=== PATIENT | male | born 1980 | race Caucasian/White ===

== ENCOUNTER 2019-11-10 05:56 | Day surgery (SDC) | payer OTHER ==
[~2019-11-10] VITALS: Ht 167.6 cm; Wt 78.4 kg
[~2019-11-10 05:56] MED LIST: Amoxicillin500 MG PO; Bactrim Ds Tab1 EACH PO; CEPH500 PO; Cleocin HCl150 MG PO; HYDACE5 PO; HYDMOR2 PO; KETO10 PO; Keflex500 MG PO; META800 PO; OXYACE5T PO; PENVK250 PO; PROM25 PO; Percocet 5-3251 EACH PO; RXCLIN PO; RXOXYACE PO; RXSULTRIDS PO; SULTRIDS PO; Ultram50 MG PO
--- NOTE | 2019-11-10 06:39 | NUR ---
PT ADMITTED TO [facility]. AGREES WITH PLANNED SURGERY. LUNG SOUNDS CLEAR.
--- NOTE | 2019-11-10 09:49 | NUR ---
Patient up to Ambulate independently. Gait steady. Discharge instructions reviewed with patient. Patient verbalizes understanding. Copy given to patient to take home. Discharged via wheelchair to private car for ride home.
== END 2019-11-10 22:44 | disposition home or self-care (01) ==
LOC: ORSCMMR 05:56 → ORD 08:45 → ORSCMMR 08:45
PROVIDERS: Surgery
PROC: 0YU50JZ Supplement Right Inguinal Region with Synthetic Substitute, Open Approach (ICD-10-PCS; principal; 2019-11-10 07:30)
DX: K40.90 Unilateral inguinal hernia, without obstruction or gangrene, not specified as recurrent (principal); F17.210 Nicotine dependence, cigarettes, uncomplicated
CPT/HCPCS: C1781; J0690; J1100; J1885; J2250; J2405; J2704; J3010; J7120

== ENCOUNTER → 2020-11-26 | Outpatient (CLI) | payer OTHER | END | disposition home or self-care (01) | LOC: LAB SHORT 11:09 → LAB 11:09 | DX: L02.01 Cutaneous abscess of face (principal) | CPT/HCPCS: 87070; 87075; 87077; 87147; 87186; 87205 ==

== ENCOUNTER 2020-12-18 19:56 | Emergency (ER) | payer OTHER | END 2020-12-18 21:21 | disposition left against medical advice (07) | LOC: ER 19:56 | DX: Z53.21 Procedure and treatment not carried out due to patient leaving prior to being seen by health care provider (principal) ==

== ENCOUNTER 2022-01-08 02:19 | Emergency (ER) | payer OTHER ==
[~2022-01-08] VITALS: Ht 167.6 cm; Wt 79.4 kg
[~2022-01-08 02:19] MED LIST changes: +IBUP200 PO
[2022-01-08] MEDS ORDERED: AMOCLA875 PO (04:14)
== END 2022-01-08 04:23 | disposition home or self-care (01) ==
LOC: ER 02:19
DX: L03.211 Cellulitis of face (principal); K04.7 Periapical abscess without sinus; F17.210 Nicotine dependence, cigarettes, uncomplicated
CPT/HCPCS: A9270

== ENCOUNTER 2022-02-13 10:15 | Emergency (ER) | payer OTHER ==
[~2022-02-13] VITALS: Ht 167.6 cm; Wt 79.4 kg
[~2022-02-13 10:15] MED LIST changes: +AMOCLA875 PO
[2022-02-13] MEDS ORDERED: CEPH500 PO (12:05)
[2022-02-13] MEDS ORDERED: OXYC5 PO (12:05)
== END 2022-02-13 12:20 | disposition home or self-care (01) ==
LOC: ER 10:15
DX: S62.631B Displaced fracture of distal phalanx of left index finger, initial encounter for open fracture (principal); W27.0XXA Contact with workbench tool, initial encounter; F17.210 Nicotine dependence, cigarettes, uncomplicated; Z23 Encounter for immunization
CPT/HCPCS: 73140; 90714; J0690

== ENCOUNTER 2022-10-26 07:52 | Emergency (ER) | payer OTHER ==
[~2022-10-26] VITALS: Ht 170.2 cm; Wt 74.8 kg
[~2022-10-26 07:52] MED LIST changes: +OXYC5 PO
[2022-10-26 08:14] VITALS: BP 162/99
[2022-10-26] MEDS ORDERED: TRAM50 PO (08:46)
[2022-10-26] MEDS ORDERED: AMOX500 PO (08:46)
[2022-10-27] MEDS ORDERED: ONDA4 PO (19:26)
== END 2022-10-26 09:07 | disposition home or self-care (01) ==
LOC: ER 07:52
DX: K02.9 Dental caries, unspecified (principal); F17.210 Nicotine dependence, cigarettes, uncomplicated
CPT/HCPCS: 99282

== ENCOUNTER 2022-10-27 17:07 | Emergency (ER) | payer OTHER ==
[~2022-10-27] VITALS: Ht 170.2 cm; Wt 74.8 kg
[~2022-10-27 17:07] MED LIST changes: +AMOX500 PO; +TRAM50 PO
[2022-10-27 17:44] VITALS: BP 173/110
[2022-10-27] MEDS ORDERED: ONDA4 PO (19:26)
== END 2022-10-27 19:30 | disposition home or self-care (01) ==
LOC: ER 17:07
DX: K08.89 Other specified disorders of teeth and supporting structures (principal); Z79.899 Other long term (current) drug therapy; F17.210 Nicotine dependence, cigarettes, uncomplicated
CPT/HCPCS: 96372; 99282-25; A9270; J1885

== ENCOUNTER 2023-02-01 17:06 | Emergency (ER) | payer OTHER ==
[~2023-02-01] VITALS: Ht 167.6 cm; Wt 77.1 kg
[~2023-02-01 17:06] MED LIST changes: +ONDA4 PO
[2023-02-01 17:14] VITALS: BP 148/98
== END 2023-02-01 19:05 | disposition home or self-care (01) ==
LOC: ER 17:06
DX: M71.9 Bursopathy, unspecified (principal); F17.210 Nicotine dependence, cigarettes, uncomplicated
CPT/HCPCS: 99283

== ENCOUNTER 2023-09-30 09:41 | Emergency (ER) | payer OTHER ==
[~2023-09-30] VITALS: Ht 167.6 cm; Wt 79.4 kg
[~2023-09-30 09:41] MED LIST changes: +AMOX875 PO
[2023-09-30 09:47] VITALS: BP 151/96
[2023-09-30] MEDS ORDERED: SULTRIDS PO (10:05)
[2023-09-30] MEDS ORDERED: CEPHALEXIN500 MG PO (10:05)
== END 2023-09-30 10:17 | disposition home or self-care (01) ==
LOC: ER 09:41
DX: L03.012 Cellulitis of left finger (principal); F17.210 Nicotine dependence, cigarettes, uncomplicated
CPT/HCPCS: 99283

== ENCOUNTER 2023-12-12 21:31 | Emergency (ER) | payer OTHER ==
[~2023-12-12] VITALS: Ht 182.9 cm; Wt 81.7 kg
[~2023-12-12 21:31] MED LIST changes: +CEPHALEXIN500 MG PO
[2023-12-12 21:43] VITALS: BP 163/108
[2023-12-12] MEDS ORDERED: Amoxicillin/Clavulanate K 875 MG Tab PO ONE (21:50)
[2023-12-12] MEDS ORDERED: AMOCLA875 PO (21:52)
[2023-12-12] MEDS ORDERED: HYDROcodone 5-APAP 325 TAB PO ONE (22:10)
== END 2023-12-12 22:19 | disposition home or self-care (01) ==
LOC: ER 21:31
DX: K04.7 Periapical abscess without sinus (principal); Z79.899 Other long term (current) drug therapy; F17.200 Nicotine dependence, unspecified, uncomplicated
CPT/HCPCS: 42000; 99282-25; A9270

== ENCOUNTER 2024-05-17 00:29 | Emergency (ER) | payer OTHER ==
[~2024-05-17] VITALS: Ht 165.1 cm; Wt 81.7 kg
[2024-05-17 00:52] VITALS: BP 152/96
== END 2024-05-17 02:02 | disposition home or self-care (01) ==
LOC: ER 00:29
DX: J06.9 Acute upper respiratory infection, unspecified (principal); Z79.2 Long term (current) use of antibiotics; F17.210 Nicotine dependence, cigarettes, uncomplicated
CPT/HCPCS: 71046; 99283-25